=== PATIENT | female | born 1975 | race Caucasian/White ===

== ENCOUNTER 2019-09-25 11:25 | Outpatient (CLI) | payer OTHER, SELFPAY ==
[2019-09-25 11:40] LABS: Basophils Absolute Auto 0.07 K/mm3 (0.00-0.10); Eosinophils Absolute Auto 0.22 K/mm3 (0.02-0.50); Eosinophils Percent Auto 3.1 % (1.0-6.0); Hematocrit 40.3 % (35.0-49.0); Hemoglobin 13.6 g/dL (12.0-15.0); Immature Granulocyte Absolute 0.02 K/mm3 (0.00-0.00); Immature Granulocyte Percent A 0.3 % (0.0-0.0); Lymphocytes Absolute Auto 1.75 K/mm3 (1.10-4.50); Lymphocytes Percent Auto 24.7 % (18.0-42.0); Mean Corpuscular HGB Conc 33.7 g/dL (32.0-36.0); Mean Corpuscular Hemoglobin 32.5 pg (27.0-31.0); Mean Corpuscular Volume 96.4 fL (78.0-102.0); Mean Platelet Volume 8.8 fl (9.2-11.8); Monocytes Absolute Auto 0.45 K/mm3 (0.10-0.90); Monocytes Percent Auto 6.3 % (2.0-11.0); Neutrophils Absolute Auto 4.6 K/mm3 (1.7-7.2); Neutrophils Percent Auto 64.6 % (50.0-70.0); Platelet Count Result 230 K/mm3 (150-420); Red Blood Count 4.18 M/mm3 (4.20-5.40); Red Cell Distribution Width 11.7 % (11.6-14.4); White Blood Count 7.1 K/mm3 (4.8-10.8)
--- NOTE | 2019-09-25 11:47 | ECG_ITS ---
Measurements Intervals [place] Rate: 65 P: 57 MS: 163 QRS: 48 QRSD: 97 T: 50 QT: 427 QTc: 446 Interpretive Statements SINUS RHYTHM INCOMPLETE RIGHT BUNDLE BRANCH BLOCK BORDERLINE ECG Electronically Signed On 09-25-2019 17:25:02 ENDOSCOPY RN by Gabriel Ramos D.O.
[2019-09-25 12:04] LABS: Alanine Aminotransferase 30 U/L (14-59); Albumin Level 4.5 g/dL (3.4-5.0); Alkaline Phosphatase 43 U/L (46-116); Anion Gap 14.8 mmol/L (7-16); Aspartate Amino Transferase 17 U/L (15-37); Bilirubin,Total 0.4 mg/dL (0.00-1.00); Blood Urea Nitrogen 10 mg/dL (7-18); Calcium 9.2 mg/dL (8.5-10.1); Carbon Dioxide 27 mmol/L (21-32); Chloride 101 mmol/L (98-108); Cholesterol 269 mg/dL (0-200); Estimated Glomerular Filt Rate > 60; Glucose 91 mg/dL (70-99); HDL Direct 54 mg/dL (40-60); LDL Cholesterol Calculated 165 mg/dL (<130); Osmolality Calculated 287 mOsm/kg (285-295); Potassium 3.8 mmol/L (3.5-5.1); Sodium 139 mmol/L (136-145); Thyroid Stimulating Hormone 4.81 uIU/mL (0.36-3.74); Total Protein 8.1 g/dL (6.4-8.2); Triglycerides 250 mg/dL (0-150)
== END 2019-09-25 11:26 | disposition home or self-care (01) ==
PROVIDERS: PCP Nurse Practitioner Family; Visit Provider Nurse Practitioner Family
DX: R23.2 Flushing (principal); I10 Essential (primary) hypertension; I16.0 Hypertensive urgency; Z01.818 Encounter for other preprocedural examination
CPT/HCPCS: 36415; 80053; 80061; 83001; 84146; 84443; 85025; 93005

== ENCOUNTER 2019-09-25 15:06 | Emergency (ER) | payer OTHER, SELFPAY ==
[2019-09-25 15:16] VITALS: BP 164/90; PULSE 85; RESP 19; TEMP 37.1; O2SAT 99
--- NOTE | 2019-09-25 15:16 | ED.GENADULT ---
HPI - General Adult General Chief complaint: Neuro Symptoms/Deficit Stated complaint: . Time Seen by Provider: 09/25/19 15:16 Source: patient and RN notes reviewed Mode of arrival: ambulatory Limitations: no limitations History of Present Illness HPI narrative: Patient has a history of hypertension. She has been having elevated blood pressures, flushing and some transient dizziness. She had a near syncopal episode last month. Episodes have been on and off for the last month worse in the last week. Today she was working and coworkers were checking her blood pressure. She was sent down to the clinic where she got an extra dose of captopril 6.25 mg and hydrochlorothiazide 12.5 mg. her blood pressure remained elevated to 160/110 while she was working. She is sent here to the ER for further treatment. complaint: Elevated blood pressure Onset (ago): month(s) (1) Severity: moderate Relieving factors: none Exacerbating factors: none Associated symptoms: denies other symptoms Related Data Home Medications Medication Instructions Recorded Confirmed cetirizine 10 mg capsule 10 mg PO DAILY 09/25/19 citalopram 20 mg tablet 20 mg PO DAILY 09/25/19 lisinopril 10 1 tablet PO DAILY 09/25/19 mg-hydrochlorothiazide 12.5 mg tablet vit C,E,zinc,copper-xovyq4g 250 1 cap PO DAILY 09/25/19 mg-lutein 5 mg-zeaxanthin 1 mg capsule Allergies Allergy/AdvReac Type Severity Reaction Status Date / Time azithromycin Allergy Mild other Verified 09/25/19 10:22 Review of Systems Constitutional: Constitutional: Reports no additional constitutional complaints Eyes: Eyes: Reports no additional eye complaints ENT: Reports system reviewed and no additional complaints, except as documented Cardiovascular: Cardiovascular: Reports no additional cardiovascular complaints Respiratory: Respiratory: Reports no additional respiratory complaints Gastrointestinal: Gastrointestinal: Reports no additional gastrointestinal complaints Musculoskeletal: Musculoskeletal: Reports no additional musculoskeletal complaints Neurologic: Denies confusion, Reports dizziness, Reports headache(s), Denies focal weakness and Denies numbness Psychiatric: Psychiatric: Reports no additional psychiatric complaints Endocrine: Comments: [place] PMFSH Past Medical History Medical History delivery delivered Hyperlipidemia Hypertension Nicotine dependence in remission Polycystic kidney disease Surgical History Surgical History History of hysterectomy History of tonsillectomy Family History Family History Father Polycystic kidney disease Mother Breast cancer Social History Social History Years smoked: 8 Smoking status: Former smoker Tobacco type: cigarettes Alcohol intake: current Substance use: current Substance use type: marijuana Additional occupation/education comments: RN Gender identity (if verbalized by the patient): Female Spiritual care concerns: No Exam Narrative: Exam Narrative: Female nurse in room during examination. Const: General: healthy appearing, no acute distress and alert Nutritional Appearance: well nourished Orientation/consciousness: patient oriented x3 HENMT: Head: normal to inspection General nose exam: Normal external nose present Face and sinus: normal facial exam Mouth: Yes lip normal and Yes moist mucous membranes Eyes: Conjunctivae: conjunctivae normal Pupils: Equal, round and reactive pupils present EOM: EOMs intact bilaterally Neck: Neck: normal visual inspection Resp: Effort & Inspection: normal respiratory effort Auscultation: clear to auscultation bilaterally Cardio: Rate: regular rate Rhythm: regular rhythm Heart sounds: no murmurs GI: GI Palp:
[2019-09-25] MEDS: CLONIDINE HCL 0.2 MG TABLET PO (15:25)
[2019-09-25 15:44] VITALS: BP 141/85
[2019-09-25 15:59] VITALS: BP 149/83
== END 2019-09-25 16:07 | disposition home or self-care (01) ==
PROVIDERS: Emergency Provider Emergency Medicine
DX: I10 Essential (primary) hypertension (principal); Z87.891 Personal history of nicotine dependence
CPT/HCPCS: 99282; 99283; A9270

== ENCOUNTER 2019-09-28 10:31 | Outpatient (CLI) | payer OTHER, SELFPAY ==
--- NOTE | 2019-09-28 10:59 | ECG_ITS ---
Measurements Intervals [place] Rate: 71 P: 19 WA: 150 QRS: 74 QRSD: 98 T: 41 QT: 401 QTc: 438 Interpretive Statements SINUS RHYTHM INCOMPLETE RIGHT BUNDLE BRANCH BLOCK BORDERLINE ECG Electronically Signed On 09-28-2019 11:28:38 SEARCH ENGINE OPTIMIZATION MANAGER by Gabriel Ramos D.O.
[2019-09-28 11:00] LABS: Appearance Urine Clear (Clear); Bilirubin Urine Negative (Negative); Color Urine Yellow (Yellow); Glucose Urine UA Negative (Negative); Ketones Urine Negative (Negative); Leukocyte Esterase Ur Negative (Negative); Nitrate Urine Negative (Negative); Protein Urine 1+ (Negative); Specific Grav Ur 1.015 (1.010-1.020); Urobilinogen Urine 0.2 mg/dL (0.2-1.0); pH Urine 7.5 (5.0-8.0)
[2019-09-28 11:09] LABS: Add Urine Microscopic? YES; Blood Urine Trace-Intact (Negative); RBC Urine 0-2 /hpf (0-2); Squamous Epithelial Cell Urine Moderate /hpf (Few); WBC Urine 0-3 /hpf (0-3)
[2019-09-28 11:10] LABS: Bacteria Urine Trace /hpf
[2019-09-28 11:23] LABS: BNP < 5.0 pg/mL (0-100)
[2019-09-28 11:31] LABS: Anion Gap 17.1 mmol/L (7-16); Blood Urea Nitrogen 11 mg/dL (7-18); Calcium 9.9 mg/dL (8.5-10.1); Carbon Dioxide 27 mmol/L (21-32); Chloride 99 mmol/L (98-108); Estimated Glomerular Filt Rate > 60; Glucose 93 mg/dL (70-99); Osmolality Calculated 287 mOsm/kg (285-295); Potassium 4.1 mmol/L (3.5-5.1); Sodium 139 mmol/L (136-145)
== END 2019-09-28 10:32 | disposition home or self-care (01) ==
PROVIDERS: PCP Family Medicine; Visit Provider Family Medicine
DX: R53.83 Other fatigue (principal); R42 Dizziness and giddiness; R23.2 Flushing
CPT/HCPCS: 36415; 80048; 81001; 83880; 93005

== ENCOUNTER 2019-10-05 08:15 | Outpatient (CLI) | payer OTHER, SELFPAY ==
--- NOTE | 2019-10-05 08:17 | EST_ITS ---
Patient Info Name: Maddy Doss Age: 44 years : 1975 Gender: Female Ht: 68 in Wt: 240 lbs BSA: 2.33 m2 HR: 92 bpm BP: 118 / 78 mmHg Heart Rhythm: Sinus Rhythm Technical Quality: Excellent Exam Date: 10/05/2019 8:34 AM Exam Location: [facility] Patient Status: Outpatient Admit Date: 10/05/2019 Staff Ordering Physician: Brandon Edmonds DO Attending Provider: Brandon Edmonds DO Referring Physician: Brandon Edmonds; Exercise Technologist: Jesenia Valverde CRT Exercise Physician: Nadine Oshea CEP Exam Type: CA stress test treadmill Study Info An exercise stress test was performed. Summary 1. 1. Negative Guillermo exercise stress test for ischemic ST changes by ECG criteria. 2. 2. Good functional capacity, achieving 10 METs of workload. 3. 3. Hypertensive response to exercise. 4. 4. Appropriate HR response to exercise. 5. 5. Appropriate HR recovery at 1 minute post exercise. 6. 6. No imaging with stress testing. Protocol: Guillermo Stress ECG Details Stage: REST Duration (min): 1 min : 46 sec Speed (mph): 0.0 Grade (%): 0 HR (bpm): 92 SBP (mmHg): 118 DBP (mmHg): 78 METS: --- Stage: REST Duration (min): 13 min : 53 sec Speed (mph): 0.0 Grade (%): 0 HR (bpm): 110 SBP (mmHg): 118 DBP (mmHg): 78 METS: --- Stage: STAGE 1 Duration (min): 1 min : 0 sec Speed (mph): 1.7 Grade (%): 10 HR (bpm): 119 SBP (mmHg): 118 DBP (mmHg): 78 METS: --- Stage: STAGE 1 Duration (min): 2 min : 0 sec Speed (mph): 1.7 Grade (%): 10 HR (bpm): 122 SBP (mmHg): 118 DBP (mmHg): 78 METS: --- Stage: STAGE 1 Duration (min): 3 min : 0 sec Speed (mph): 1.7 Grade (%): 10 HR (bpm): 127 SBP (mmHg): 160 DBP (mmHg): 54 METS: --- Stage: STAGE 2 Duration (min): 1 min : 0 sec Speed (mph): 2.5 Grade (%): 12 HR (bpm): 139 SBP (mmHg): 160 DBP (mmHg): 54 METS: --- Stage: STAGE 2 Duration (min): 2 min : 0 sec Speed (mph): 2.5 Grade (%): 12 HR (bpm): 147 SBP (mmHg): 160 DBP (mmHg): 54 METS: --- Stage: STAGE 2 Duration (min): 3 min : 0 sec Speed (mph): 2.5 Grade (%): 12 HR (bpm): 148 SBP (mmHg): 158 DBP (mmHg): 54 METS: --- Stage: STAGE 3 Duration (min): 1 min : 0 sec Speed (mph): 3.4 Grade (%): 14 HR (bpm): 161 SBP (mmHg): 158 DBP (mmHg): 54 METS: --- Stage: STAGE 3 Duration (min): 2 min : 0 sec Speed (mph): 3.4 Grade (%): 14 HR (bpm): 167 SBP (mmHg): 158 DBP (mmHg): 54 METS: --- Stage: STAGE 3 Duration (min): 3 min : 0 sec Speed (mph): 3.4 Grade (%): 14 HR (bpm): 172 SBP (mmHg): 189 DBP (mmHg): 104 METS: --- Stage: STAGE 4 Duration (min): 0 min : 29 sec Speed (mph): 4.2 Grade (%): 16 HR (bpm): 176 SBP (mmHg): 189 DBP (mmHg): 104 METS: ---
== END 2019-10-05 08:16 | disposition home or self-care (01) ==
LOC: CHSCARD 08:17
PROVIDERS: PCP Family Medicine; Visit Provider Family Medicine
DX: I16.0 Hypertensive urgency (principal)
CPT/HCPCS: 93017

== ENCOUNTER 2020-03-22 12:03 | Outpatient (CLI) | payer OTHER, SELFPAY ==
--- NOTE | ~2020-03-22 | CT_ITS ---
EXAMINATION: CT abdomen pelvis w con EXAM DATE: 03/22/2020 13:15 INDICATION: Generalized abdominal pain, burning sensation. Symptoms 3 days. TECHNIQUE: Spiral CT of the abdomen and pelvis was performed following intravenous injection of 100 m L Omnipaque 350. Axial, coronal and sagittal images were reviewed. The dose-length product (DLP) fo r this examination was 1163.59 mGy-cm. The exposure was tailored according to patient size (auto mA exposure control), and iterative reconstruction (ASIR) was used as additional dose reduction techniqu e. There is no prior study for comparison. FINDINGS: Innumerable small renal cysts and numerous liver cysts. Probably autosomal dominant polycys tic kidney disease but the kidneys are normal in size overall which is atypical for that diagnosis. L argest liver cyst is about 3 cm, and largest kidney cyst is exophytic off the left kidney superior po le measuring over 9 cm. The liver, spleen, adrenal glands and pancreas are otherwise unremarkable. Gallbladder is unremarkab le. No biliary obstruction. Portal and splenic veins are patent. Kidneys enhance symmetrically. T here is no hydronephrosis. The uterus is not identified and has likely been surgically resected. T he bladder is unremarkable. There is no retroperitoneal or pelvic lymphadenopathy. Small umbilical fat-containing hernia. The appendix is normal. The stomach and small bowel are unremarkable. There is expected amount of c olonic stool. No free intraperitoneal gas. The heart is normal in size. There are no pericardial or pleural effusions. The lung bases are unremarkable. The bones are unremarkable. IMPRESSION: 1. Polycystic kidneys, liver. Probably autosomal dominant polycystic kidney disease. 2. No acute intra-abdominal findings. Reviewed, dictated and finalized at location A. IMPRESSION: 1. Polycystic kidneys, liver. Probably autosomal dominant polycystic kidney di sease. 2. No acute intra-abdominal findings.
[2020-03-22 12:54] LABS: Blood Urea Nitrogen 11 mg/dL (7-18); Calcium 9.1 mg/dL (8.5-10.1); Carbon Dioxide 29 mmol/L (21-32); Chloride 101 mmol/L (98-108); Estimated Glomerular Filt Rate 57; Glucose 109 mg/dL (70-99); Osmolality Calculated 282 mOsm/kg (285-295); Sodium 136 mmol/L (136-145)
[2020-03-22 13:13] LABS: Basophils Absolute Auto 0.09 K/mm3 (0.00-0.10); Basophils Percent Auto 1.1 % (0.0-1.0); Eosinophils Absolute Auto 0.42 K/mm3 (0.02-0.50); Eosinophils Percent Auto 5.2 % (1.0-6.0); Hematocrit 41.8 % (35.0-49.0); Hemoglobin 14.4 g/dL (12.0-15.0); Immature Granulocyte Absolute 0.03 K/mm3 (0.00-0.00); Immature Granulocyte Percent A 0.4 % (0.0-0.0); Lymphocytes Absolute Auto 1.86 K/mm3 (1.10-4.50); Lymphocytes Percent Auto 22.9 % (18.0-42.0); Mean Corpuscular HGB Conc 34.4 g/dL (32.0-36.0); Mean Corpuscular Hemoglobin 33.2 pg (27.0-31.0); Mean Corpuscular Volume 96.3 fL (78.0-102.0); Mean Platelet Volume 9.1 fl (9.2-11.8); Monocytes Absolute Auto 0.49 K/mm3 (0.10-0.90); Neutrophils Absolute Auto 5.2 K/mm3 (1.7-7.2); Neutrophils Percent Auto 64.4 % (50.0-70.0); Platelet Count Result 272 K/mm3 (150-420); Red Blood Count 4.34 M/mm3 (4.20-5.40); Red Cell Distribution Width 11.9 % (11.6-14.4); White Blood Count 8.1 K/mm3 (4.8-10.8)
[2020-03-22 13:39] LABS: Thyroid Stimulating Hormone Reflex 2.49 u/IU/mL (0.36-3.74)
== END 2020-03-22 12:04 | disposition home or self-care (01) ==
PROVIDERS: Family Medicine; PCP Nurse Practitioner Family; Visit Provider Nurse Practitioner Family
DX: R10.84 Generalized abdominal pain (principal); E03.9 Hypothyroidism, unspecified; Z87.448 Personal history of other diseases of urinary system
CPT/HCPCS: 36415; 74177; 80048; 84443; 85025; 85055; Q9965

== ENCOUNTER 2020-04-05 07:43 | Outpatient (CLI) | payer OTHER, SELFPAY ==
[2020-04-05 07:55] LABS: Basophils Absolute Auto 0.08 K/mm3 (0.00-0.10); Basophils Percent Auto 1.2 % (0.0-1.0); Eosinophils Absolute Auto 0.39 K/mm3 (0.02-0.50); Hematocrit 40.1 % (35.0-49.0); Hemoglobin 13.8 g/dL (12.0-15.0); Immature Granulocyte Absolute 0.03 K/mm3 (0.00-0.00); Immature Granulocyte Percent A 0.5 % (0.0-0.0); Lymphocytes Absolute Auto 1.38 K/mm3 (1.10-4.50); Lymphocytes Percent Auto 21.2 % (18.0-42.0); Mean Corpuscular HGB Conc 34.4 g/dL (32.0-36.0); Mean Corpuscular Hemoglobin 33.2 pg (27.0-31.0); Mean Corpuscular Volume 96.4 fL (78.0-102.0); Mean Platelet Volume 8.6 fl (9.2-11.8); Monocytes Percent Auto 4.6 % (2.0-11.0); Neutrophils Absolute Auto 4.3 K/mm3 (1.7-7.2); Neutrophils Percent Auto 66.5 % (50.0-70.0); Platelet Count Result 220 K/mm3 (150-420); Red Blood Count 4.16 M/mm3 (4.20-5.40); Red Cell Distribution Width 11.9 % (11.6-14.4); White Blood Count 6.5 K/mm3 (4.8-10.8)
[2020-04-05 07:56] LABS: Appearance Urine Clear (Clear); Bilirubin Urine Negative (Negative); Color Urine Yellow (Yellow); Glucose Urine UA Negative (Negative); Ketones Urine Negative (Negative); Leukocyte Esterase Ur Negative LEU/UL (Negative); Nitrate Urine Negative (Negative); Protein Urine 1+ (Negative); Urobilinogen Urine 0.2 mg/dL (0.2-1.0)
[2020-04-05 08:01] LABS: Add Urine Microscopic? YES; Blood Urine Trace-Intact (Negative); RBC Urine 0-2 /hpf (0-2); WBC Urine 0-3 /hpf (0-3)
[2020-04-05 08:02] LABS: Bacteria Urine 1+ /hpf; Squamous Epithelial Cell Urine Few /hpf (Few)
[2020-04-05 08:19] LABS: Creatinine Urine 100.98 mg/dL (40-278); Total Protein Urine Random 42.2 mg/dL (0.0-11.9)
[2020-04-05 08:31] LABS: Anion Gap 7 mmol/L (8-16); Blood Urea Nitrogen 14 mg/dL (7-18); Calcium 9.1 mg/dL (8.5-10.1); Carbon Dioxide 29 mmol/L (21-32); Chloride 102 mmol/L (98-108); Estimated Glomerular Filt Rate > 60; Glucose 115 mg/dL (70-99); Osmolality Calculated 287 mOsm/kg (285-295); Phosphorus 2.8 mg/dL (2.6-4.7); Potassium 3.8 mmol/L (3.5-5.1); Sodium 138 mmol/L (136-145)
== END 2020-04-05 07:44 | disposition home or self-care (01) ==
LOC: CHSLAB 07:44
PROVIDERS: PCP Family Medicine; Visit Provider Internal Medicine Nephrology
DX: Q61.2 Polycystic kidney, adult type (principal)
CPT/HCPCS: 36415; 80069; 81001; 82570; 84156; 85025

== ENCOUNTER 2020-04-09 07:28 | Outpatient (CLI) | payer OTHER, SELFPAY ==
--- NOTE | ~2020-04-09 | MR_ITS ---
EXAMINATION: MRA brain wo con DATE: 04/09/2020 08:41 INDICATION: Polycystic kidney disease. TECHNIQUE: Magnetic resonance angiography (MRA) of the brain was performed without intravenous contra st with T1-weighted SPGR by the 3D [id number] technique. Maximum intensity projection 3D-reconstr uctions were obtained. Axial T1-weighted FSE and axial DWI were performed. COMPARISON: None. FINDINGS: Right vertebral artery is dominant. There is no significant stenosis of basilar artery or the posteri or cerebral arteries. Right posterior communicating artery is normal. A left posterior communicating artery is not identified. There is no significant stenosis of the intracranial internal carotid arter ies or anterior or middle cerebral arteries. Anterior communicating artery is normal. There is no ane urysm. IMPRESSION: 1. Normal MRA. No aneurysm. Reviewed, dictated and finalized at location A. IMPRESSION: 1. Normal MRA. No aneurysm.
== END 2020-04-09 07:29 | disposition home or self-care (01) ==
LOC: CHSIMG 07:29
PROVIDERS: PCP Family Medicine; Visit Provider Internal Medicine Nephrology
DX: Q61.2 Polycystic kidney, adult type (principal)
CPT/HCPCS: 70544

== ENCOUNTER 2020-04-20 12:43 | Emergency (ER) | payer OTHER, SELFPAY ==
[2020-04-20 13:06] VITALS: BP 147/80; PULSE 100; RESP 18; TEMP 36.7; O2SAT 95
[2020-04-20 13:38] LABS: Basophils Absolute Auto 0.1 K/mm3 (0.0-0.1); Basophils Percent Auto 0.9 % (0.2-1.2); Eosinophils Absolute Auto 0.5 K/mm3 (0-0.3); Eosinophils Percent Auto 5.9 % (0-4.4); Hematocrit 42.8 % (37.0-47.0); Hemoglobin 14.8 g/dL (12.0-15.0); Immature Granulocyte Absolute 0.04 K/mm3 (0.00-0.031); Immature Granulocyte Percent A 0.5 % (0-0.5); Lymphocytes Percent Auto 19.6 % (18.3-44.2); Mean Corpuscular HGB Conc 34.6 g/dl (32-36); Mean Corpuscular Hemoglobin 32.6 pg (26-34); Mean Corpuscular Volume 94.3 fl (80-100); Mean Platelet Volume 9.2 fl (7.4-10.4); Monocytes Absolute Auto 0.5 K/mm3 (0.1-0.6); Monocytes Percent Auto 5.7 % (2.6-8.5); Neutrophils Absolute Auto 5.8 K/mm3 (1.3-6.7); Neutrophils Percent Auto 67.4 % (45.5-73.1); Platelet Count Result 263 k/mm3 (150-375); Red Blood Count 4.54 M/mm3 (4.2-5.4); Red Cell Distribution Width 12.1 % (11.5-14.5); White Blood Count 8.7 K/mm3 (4.5-10.0)
[2020-04-20 13:44] LABS: Add Urine Microscopic? NO; Appearance Urine Clear (Clear); Bilirubin Urine Negative (Negative); Blood Urine Negative (Negative); Color Urine Straw (Yellow); Glucose Urine UA Negative (Negative); Ketones Urine Negative (Negative); Leukocyte Esterase Ur Negative LEU/UL (Negative); Nitrate Urine Negative (Negative); Protein Urine Negative (Negative); RBC Urine 0-2 /hpf (0-2); Specific Grav Ur 1.009 (1.001-1.035); Squamous Epithelial Cell Urine Many /hpf (Few); Urobilinogen Urine Negative mg/dL (<2.0)
[2020-04-20 13:54] LABS: Alanine Aminotransferase 29 U/L (4-35); Albumin Level 4.8 g/dL (3.5-5.1); Alkaline Phosphatase 51 U/L (38-126); Anion Gap 11 mmol/L (8-16); Aspartate Amino Transferase 32 U/L (14-36); Bilirubin,Total 0.3 mg/dL (0.2-1.3); Blood Urea Nitrogen 11 mg/dL (7-17); Calcium 9.6 mg/dL (8.4-10.2); Carbon Dioxide 22 mmol/L (22-30); Chloride 102 mmol/L (98-107); Estimated CRCL calculation 97 ml/min; Estimated Glomerular Filt Rate > 60; Glucose 97 mg/dL (65-105); Lipase 116 U/L (23-300); Potassium 3.9 mmol/L (3.4-5.0); Sodium 135 mmol/L (137-145)
--- NOTE | 2020-04-20 14:42 | ED.ABDPAIN ---
HPI - Abdominal Pain General Chief Complaint: Abdominal Pain <RODY Linares Last Filed: 04/20/20 17:23> Stated Complaint: ABD Pain <RODY Linares Last Filed: 04/20/20 17:23> Time Seen by Provider: 04/20/20 12:58 <RODY Linares Last Filed: 04/20/20 17:23> Source: patient, family and old records reviewed <RODY Linares Last Filed: 04/20/20 17:23> Mode of arrival: ambulatory <RODY Linares Last Filed: 04/20/20 17:23> Limitations: no limitations <RODY Linares Last Filed: 04/20/20 17:23> History of Present Illness HPI narrative: Patient is a 44-year-old female who presents with 2 months duration of generalized abdominal pain noting history of polycystic kidney disease noting that she had recent CAT scan which revealed large cysts of the kidneys patient also notes liver cyst was supposed to see urology today to discuss the findings. Patient was also followed by nephrology and primary care for this and has been taking home narcotics with no improvement. Patient missed her urology appointment today presents to emergency department with moderate to severe aching of the upper abdomen. Patient denies fever vomiting diarrhea <RODY Linares Last Filed: 04/20/20 17:23> Related Data Home Medications: Home Medications Medication Instructions Recorded Confirmed cetirizine 10 mg capsule 10 mg PO DAILY 09/25/19 09/28/19 citalopram 20 mg tablet 20 mg PO DAILY 09/25/19 09/28/19 vit C,E,zinc,copper-qesyy7v 250 1 cap PO DAILY 09/25/19 09/28/19 mg-lutein 5 mg-zeaxanthin 1 mg capsule <RODY Linares Last Filed: 04/20/20 17:23> Allergies/Adverse Reactions: Allergies Allergy/AdvReac Type Severity Reaction Status Date / Time azithromycin Allergy Mild other Verified 04/20/20 13:10 <RODY Linares Last Filed: 04/20/20 17:23> Review of Systems Review of Systems: All systems reviewed & are unremarkable except as noted in HPI and below <RODY Linares Filed: 04/20/20 17:23> [facility] Past Medical History Medical History: Medical History delivery delivered Hyperlipidemia Hypertension Hypothyroidism Lightheadedness Nicotine dependence in remission Polycystic kidney disease <Matthew Marquez PA-C - Last Filed: 04/20/20 17:23> Surgical History Surgical History: Surgical History History of hysterectomy History of tonsillectomy <Matthew Marquze PA-C - Last Filed: 04/20/20 17:23> Social History Social History: Social History Years smoked: 8 Smoking status: Former smoker Tobacco type: cigarettes Alcohol intake: current Substance use: current Substance use type: marijuana Additional occupation/education comments: RN Gender identity (if verbalized by the patient): Female Spiritual care concerns: No <Matthew Marquez PA-C - Last Filed: 04/20/20 17:23> Exam Narrative: Exam Narrative: GENERAL: Well-appearing, well-nourished, and in no acute distress. HEAD: Normocephalic, atraumatic. EYES: PERRLA and EOMI. ENT: Nares clear, no rhinorrhea or epistaxis. Mucous membranes moist. CHEST: Clear to auscultation. No respiratory distress. No wheezes rales or rhonchi HEART: Regular rate and rhythm. No murmur heard. Normal peripheral pulses. ABDOMEN: Soft, tenderness of the abdomen that is generalized no rebound or guarding, nondistended EXTREMITIES: Normal range of motion. No edema. SKIN: Warm, dry, no rash. NEURO: No focal deficits. Alert and oriented x3. PSYCH: Normal mood and affect. <Matthew Marquez PA-C - Last Filed: 04/20/20 17:23> Course Course Emergency Course: Patient in the room at this time aware of case findings treatment plan diagnosi
[2020-04-20 14:46] VITALS: BP 117/57; PULSE 62; RESP 18; O2SAT 100
[2020-04-20] MEDS: MORPHINE SULFATE 4 MG/ML INJ IV PUSH (14:48)
[2020-04-20] MEDS: FAMOTIDINE 20 MG/2 ML VIAL IV PUSH (14:48)
[2020-04-20] MEDS: SODIUM CHLORIDE 0.9% IV 1,000 ML 999 ML IV CONT (14:49)
== END 2020-04-20 17:54 | disposition home or self-care (01) ==
PROVIDERS: Emergency Medicine Emergency Medical Services; Emergency Provider General Practice; PCP Family Medicine
DX: R10.84 Generalized abdominal pain (principal); Q61.3 Polycystic kidney, unspecified; Z87.891 Personal history of nicotine dependence; E78.5 Hyperlipidemia, unspecified; I10 Essential (primary) hypertension; E03.9 Hypothyroidism, unspecified
CPT/HCPCS: 36415; 80053; 81003; 83690; 85025; 96365; 96375; 99284; J0131; J2270; J7030

== ENCOUNTER 2020-05-19 13:41 | Outpatient (CLI) | payer OTHER, SELFPAY ==
[2020-05-19 13:57] LABS: Total Protein Urine Random 10.1 mg/dL (0.0-11.9)
[2020-05-19 14:43] LABS: Albumin Level 4.1 g/dL (3.4-5.0); Anion Gap 7 mmol/L (8-16); Blood Urea Nitrogen 10 mg/dL (7-18); Calcium 8.7 mg/dL (8.5-10.1); Carbon Dioxide 27 mmol/L (21-32); Chloride 103 mmol/L (98-108); Estimated Glomerular Filt Rate > 60; Glucose 96 mg/dL (70-99); Osmolality Calculated 283 mOsm/kg (285-295); Phosphorus 3.3 mg/dL (2.6-4.7); Potassium 3.7 mmol/L (3.5-5.1); Sodium 137 mmol/L (136-145)
== END 2020-05-19 13:42 | disposition home or self-care (01) ==
LOC: CHSLAB 13:44
PROVIDERS: PCP Family Medicine; Visit Provider Internal Medicine Nephrology
DX: N18.2 Chronic kidney disease, stage 2 (mild) (principal); Q61.2 Polycystic kidney, adult type
CPT/HCPCS: 36415; 80069; 82570; 84156

== ENCOUNTER 2020-10-04 12:22 | Emergency (ER) | payer OTHER, SELFPAY ==
[2020-10-04] VITALS (8 sets, daily range): BP systolic 111–130; BP diastolic 62–74; PULSE 62–75; RESP 20; TEMP 36.6; O2SAT 98–100
--- NOTE | ~2020-10-04 | CT_ITS ---
EXAMINATION: CT brain wo con INDICATION: Transient alteration of awareness COMPARISON: MRI, 04/09/2020 TECHNIQUE: Standard unenhanced head CT. The dose-length product (DLP) was 756.67 mGy-cm. The mA was a djusted according to patient size. Iterative reconstruction technique was employed. FINDINGS: There is no intracranial hemorrhage, acute infarction, or abnormal mass lesion. The ventric les are normal. There is no abnormal mass effect or midline shift. The ferrera-white matter differentiat ion is normal. The basal cisterns are patent. The orbits are normal. The paranasal sinuses, mastoids and calvarium are normal. IMPRESSION: 1. No acute intracranial abnormality. Reviewed, dictated and finalized at location A. STRIAL MACHINERY MECHANIC
--- NOTE | ~2020-10-04 | XR_ITS ---
EXAMINATION: XR chest 1V portable INDICATION: Transient alteration of awareness TECHNIQUE: Portable AP chest at 1305 hours COMPARISON: None available FINDINGS: The lungs are free of acute opacities. There is no pleural effusion or pneumothorax. The ca rdiomediastinal silhouette is normal IMPRESSION: 1. No acute cardiopulmonary abnormality. Reviewed, dictated and finalized at location A. NT PARTNER
--- NOTE | 2020-10-04 12:26 | ED.SYNCOPE ---
HPI - Syncope General Chief Complaint: Syncope Stated Complaint: ambulance Time Seen by Provider: 10/04/20 12:26 Source: patient Mode of arrival: EMS Limitations: no limitations History of Present Illness HPI narrative: 45-year-old woman history of PCKD and hypothyroidism comes in today by EMS for syncopal episodes that happened while she was eating lunch today. When EMS found her she was mildly confused but alert. No seizure activity was noted by witnesses. Patient states that she lost consciousness at least 1 of the 2 times that she passed out. She denies chest pain and shortness of breath but complains that she still has a feeling like she is on a roller coaster ride and denies vertigo, shortness of breath, nausea, sweating and has had no recent illness other than being treated for shingles. She denies any recent illness, sore throat, cough or cold symptoms and fever, Complaining only of allergies . she had a negative stress test in September 2019 for intermittent nausea and feeling off balance. MD complaint: loss of consciousness, felt faint and collapsed Onset (ago): minute(s) (20) -: second(s) Prodromal symptoms: other (sensation of movement) Witnessed: Yes - by Bystander Context: at rest Injuries sustained associated with event: none Current symptoms: other (Sensation of movement) Treatments prior to arrival: none Related Data Home Medications Medication Instructions Recorded Confirmed cetirizine 10 mg capsule 10 mg PO DAILY 09/25/19 10/04/20 vit C,E,zinc,copper-rpxqx2a 250 1 cap PO DAILY 09/25/19 10/04/20 mg-lutein 5 mg-zeaxanthin 1 mg capsule citalopram [Celexa] See Rx Instructions .ROUTE .COMPLEX 10/04/20 10/04/20 Allergies Allergy/AdvReac Type Severity Reaction Status Date / Time azithromycin Allergy Mild other Verified 10/04/20 13:22 Review of Systems Constitutional: Constitutional: Denies chills, Denies fever(s) and Denies weakness Eyes: Eyes: Denies change in vision and Denies photophobia ENT: Reports nasal congestion and Denies sore throat Cardiovascular: Cardiovascular: Denies chest pain and Denies radiating jaw, neck or arm pain Respiratory: Respiratory: Denies cough and Denies dyspnea Gastrointestinal: Gastrointestinal: Denies abdominal pain, Denies diarrhea, Denies nausea and Denies vomiting Genitourinary: Genitourinary: Denies nocturia and Denies dysuria Musculoskeletal: Musculoskeletal: Denies back pain, Denies arthralgias and Denies joint swelling Integumentary/Breasts: Skin/Breast: Denies pruritus, Denies erythema and Denies rash Neurologic: Denies vertigo, Denies dizziness and Reports syncope Allergic/Immunologic: Allergic/Immunologic: Denies lip swelling and Denies throat swelling [facility] Past Medical History Medical History (Updated 10/05/20 @ 00:00 by Maine Daedwin) delivery delivered Hyperlipidemia Hypertension Hypothyroidism Lightheadedness Nicotine dependence in remission Polycystic kidney disease Surgical History Surgical History History of hysterectomy History of tonsillectomy Family History Family History Father Polycystic kidney disease Mother Breast cancer Social History Social History Years smoked: 8 Smoking status: Former smoker Tobacco type: cigarettes Alcohol intake: current Substance use: current Substance use type: marijuana Additional occupation/education comments: RN Gender identity (if verbalized by the patient): Female Spiritual care concerns: No Exam Const: General: no acute distress, alert and ill appearing acutely Orientation/consciousness: patient oriented x3 Limitations: no limitations HENMT: Ears: external ears normal, TM's normal bilaterally and EAC's normal General nose exam: Normal nares present Face and sinus: normal fa
--- NOTE | 2020-10-04 12:27 | ECG_ITS ---
Measurements Intervals [place] Rate: 75 P: 68 WA: 152 QRS: 72 QRSD: 98 T: 62 QT: 401 QTc: 450 Interpretive Statements SINUS RHYTHM INCOMPLETE RIGHT BUNDLE BRANCH BLOCK BASELINE ARTIFACT- I, II, III, V6 BORDERLINE ECG Electronically Signed On 10-04-2020 13:00:04 BI REPORT DEVELOPER by Gabriel Ramos D.O.
[2020-10-04] MEDS: SODIUM CHLORIDE 0.9% IV 1,000 ML 999 ML IV CONT (12:43)
[2020-10-04 12:57] LABS: Basophils Absolute Auto 0.11 K/mm3 (0.00-0.10); Basophils Percent Auto 1.4 % (0.0-1.0); Eosinophils Absolute Auto 0.42 K/mm3 (0.02-0.50); Eosinophils Percent Auto 5.3 % (1.0-6.0); Hematocrit 40.2 % (35.0-49.0); Hemoglobin 13.8 g/dL (12.0-15.0); Immature Granulocyte Absolute 0.03 K/mm3 (0.00-0.00); Immature Granulocyte Percent A 0.4 % (0.0-0.0); Lymphocytes Percent Auto 27.5 % (18.0-42.0); Mean Corpuscular HGB Conc 34.3 g/dL (32.0-36.0); Mean Corpuscular Volume 96.2 fL (78.0-102.0); Mean Platelet Volume 8.8 fl (9.2-11.8); Monocytes Absolute Auto 0.44 K/mm3 (0.10-0.90); Monocytes Percent Auto 5.5 % (2.0-11.0); Neutrophils Absolute Auto 4.8 K/mm3 (1.7-7.2); Neutrophils Percent Auto 59.9 % (50.0-70.0); Platelet Count Result 206 K/mm3 (150-420); Red Blood Count 4.18 M/mm3 (4.20-5.40); Red Cell Distribution Width 11.9 % (11.6-14.4)
[2020-10-04 13:06] LABS: D Dimer 0.39 mg/L (0.19-0.50); Partial Thromboplastin Time 20.7 SEC (23.90-30.70); Prothrombin Time 10.2 Seconds (9.50-12.10)
[2020-10-04 13:08] LABS: BNP 7.6 pg/mL (0-100)
[2020-10-04 13:11] LABS: Lactic Acid Reflex 2.5 mmol/L (0.4-2.0)
[2020-10-04 13:15] LABS: Add Urine Microscopic? YES; Appearance Urine Clear (Clear); Bilirubin Urine Negative (Negative); Blood Urine Negative (Negative); Color Urine Yellow (Yellow); Glucose Urine UA Negative (Negative); Ketones Urine Negative (Negative); Leukocyte Esterase Ur Trace LEU/UL (Negative); Nitrate Urine Negative (Negative); Protein Urine Trace (Negative); Urobilinogen Urine 0.2 mg/dL (0.2-1.0); pH Urine 6.5 (5.0-8.0)
[2020-10-04 13:18] LABS: Alanine Aminotransferase 24 U/L (14-59); Albumin Level 4.1 g/dL (3.4-5.0); Alkaline Phosphatase 41 U/L (46-116); Anion Gap 13 mmol/L (8-16); Aspartate Amino Transferase 15 U/L (15-37); Bilirubin,Total 0.3 mg/dL (0.00-1.00); Blood Urea Nitrogen 9 mg/dL (7-18); Calcium 9.4 mg/dL (8.5-10.1); Carbon Dioxide 25 mmol/L (21-32); Chloride 99 mmol/L (98-108); Estimated CRCL calculation 72 ml/min; Estimated Glomerular Filt Rate 52; Glucose 107 mg/dL (70-99); Magnesium 1.8 mg/dL (1.8-2.4); Osmolality Calculated 282 mOsm/kg (285-295); Potassium 3.5 mmol/L (3.5-5.1); Sodium 137 mmol/L (136-145); Total Protein 7.6 g/dL (6.4-8.2)
[2020-10-04 13:19] LABS: Troponin I 96.6 ng/L (0.00-60.4)
[2020-10-04 13:21] LABS: Bacteria Urine 1+ /hpf; RBC Urine 0-2 /hpf (0-2); Squamous Epithelial Cell Urine Many /hpf (Few)
[2020-10-04 13:31] LABS: Amphetamine Screen Urine Negative (Negative); Barbiturate Screen Urine Negative (Negative); Benzodiazepines Screen Urine Negative (Negative); Cannabinoid Screen Urine Positive (Negative); Cocaine Screen Urine Negative (Negative); Methadone Screen Urine Negative (Negative); Opiate Screen Urine Negative (Negative); Phencyclidine Screen Urine Negative (Negative)
[2020-10-04] MEDS: ASPIRIN 81 MG CHEWABLE TABLET 324 MG PO (14:49)
[2020-10-04 15:48] LABS: Reflex Lactic Acid Yes or No Add Lactic
[2020-10-04 16:25] LABS: Lactic Acid 0.3 mmol/L (0.4-2.0)
[2020-10-04 16:26] LABS: Troponin I 89.2 ng/L (0.00-60.4)
== END 2020-10-04 18:11 | disposition short-term general hospital (02) ==
PROVIDERS: Emergency Provider Emergency Medicine; PCP Family Medicine
DX: R55 Syncope and collapse (principal); R79.9 Abnormal finding of blood chemistry, unspecified
CPT/HCPCS: 36415; 70450; 71045; 80053; 80307; 81001; 83605; 83735; 83880; 84484; 85025; 85380; 85610; 85730; 87040; 93005; 96360; 99285; A9270; J7030

== ENCOUNTER 2020-11-15 07:38 | Outpatient (CLI) | payer OTHER, SELFPAY ==
--- NOTE | 2020-11-17 12:23 | WPDHOLTEREM ---
Holter/Event Monitor Holter/Event Monitor Date of procedure: 11/15/20 Procedure Type: 48 hour holter monitor Indications: Syncope Conclusion: 1. 48 hour holter monitor on 11/15/20. 2. Underlying rhythm is sinus rhythm. HR range 52-140 bpm; average 78 bpm. 3. There are 2 premature supraventricular complexes. No supraventricular tachycardia. 4. No premature ventricular complexes. No ventricular tachycardia. 5. No sinoatrial or atrioventricular blocks. No significant pauses greater than 2 seconds. 6. No symptoms available for correlation.
== END 2020-11-15 07:39 | disposition home or self-care (01) ==
PROVIDERS: PCP Family Medicine; Visit Provider Family Medicine
DX: R55 Syncope and collapse (principal)
CPT/HCPCS: 93225; 93226

== ENCOUNTER 2020-11-29 08:35 | Outpatient (CLI) | payer OTHER, SELFPAY ==
--- NOTE | 2020-11-30 08:30 | P.NEURO_ITS ---
Neurology EEG Report General Information Date of Study: 11/29/20 TEST eeg DIAGNOSIS syncope and collapse CONDITION OF RECORDING awake and drowsy EEG NUMBER [id number] CLINICAL HISTORY patient reported she has lost consciousness a couple of times. Gets a little nauseous and face turns pale before losing consciousness EEG DESCRIPTION basic resting occipital frequency consists of moderate amount of fairly well- organized low to medium voltage 8 to 10 hertz per 2nd alpha admixed with low- voltage 15 to 18 hertz per 2nd beta in drowsiness low-voltage beta activity seen diffusely. hyperventilation not done. Photic stimulation produced normal drive. Non paroxysmal nonfocal nonlateralizing IMPRESSION no significant abnormalities noted
== END 2020-11-29 08:36 | disposition home or self-care (01) ==
PROVIDERS: PCP Family Medicine; Visit Provider Family Medicine
DX: R55 Syncope and collapse (principal)
CPT/HCPCS: 95816

== ENCOUNTER 2022-02-08 10:26 | Outpatient (CLI) | payer OTHER, SELFPAY ==
--- NOTE | ~2022-02-08 | XR_ITS ---
XR knee LT 2V 02/08/2022 10:52 INDICATION: Left knee pain PROCEDURE: 3 views left knee COMPARISON: No prior studies for comparison. FINDINGS: Fracture, dislocation or subluxation is not identified. No significant joint effusion. The soft tissues appear within normal limits. No foreign bodies are identified. IMPRESSION: 1: NO ACUTE BONE OR JOINT ABNORMALITY IDENTIFIED. Reviewed, dictated and finalized at location A.
== END 2022-02-08 10:27 | disposition home or self-care (01) ==
LOC: CHSIMG 10:30
PROVIDERS: PCP Family Medicine; Visit Provider Family Medicine
DX: M25.562 Pain in left knee (principal)
CPT/HCPCS: 73560

== ENCOUNTER 2022-02-08 12:53 | Outpatient (RCR) | payer OTHER, SELFPAY ==
--- NOTE | 2022-02-23 13:30 | PTOPEVAL ---
Thank you for referring Maddy Baldwin to [facility].? The patient is scheduled to be seen for therapy? ____x/week for ___ weeks. Please review, sign, date and return this plan of care ALDO. I agree with and certify that the following plan of care is medically necessary. Referring Physician Date Admitting Provider: Attending Provider: Ángela Ta NP Referring Provider: *PT Outpatient Evaluation Start: 02/08/22 13:03 Freq: Status: Active Protocol: Document 02/08/22 13:00 [facility] (Rec: 02/08/22 14:13 [facility] [id number]) Therapy Assessment Status Assessment Status Assessment Status Evaluation Outpatient Past Medical History Neurological History Hx Neurological Disorders No Significant History Cardiovascular History Hx Hypercholesterolemia Yes Hx Hypertension Yes Respiratory History Hx Respiratory Disorders No Significant History Gastrointestinal History Hx Gastrointestinal Disorders No Significant History Genitourinary History Hx Renal Disease Yes: POLYCISYSTIC KIDNEY Musculoskeletal History Hx Musculoskeletal Disorders No Significant History Hematological History Hx Hematological Disorders No Significant History Endocrine History Hx Endocrine Disorders No Significant History HEENT History Hx HEENT Disorders No Significant History Integumentary History Hx Skin Disorders No Significant History Psychosocial History Hx Anxiety Yes Hx Depression Yes Pain History History of Any Previous or Ongoing No Significant History Instance of Pain Anesthesia History Hx Anesthesia Reactions No Significant History Evaluation Information Problem Diagnosis L Knee Pain Onset 02/07/22 Additional Evaluation Detail LEFS = 58% functionally declined Subjective Information Pt reports that as a kid she Query Text:As Reported By Patient/ experienced her knees locking Family up after kneeling for a while. Yesterday, she was getting out of bed with her legs and L knee went out of place. She states that the pain was excruciating and she had to lay on the floor for six hours . She then was walking with a stool, similar to as if it was a walker for her to get to the bathroom. When walking to the bathroom, her knee went back into place and was less painful, but was just sore.
--- NOTE | 2022-03-09 07:40 | PTOPEVAL ---
Thank you for referring Maddy Baldwin to [facility].? The patient is scheduled to be seen for therapy? __2__x/week for 8 visits. Please review, sign, date and return this plan of care ALDO. I agree with and certify that the following plan of care is medically necessary. Referring Physician Date Admitting Provider: Attending Provider: Ángela Ta NP Referring Provider: *PT Outpatient Evaluation Start: 02/08/22 13:03 Freq: Status: Active Protocol: Document 02/08/22 13:00 [facility] (Rec: 02/08/22 14:13 MARIA ELENA [id number]) Therapy Assessment Status Assessment Status Assessment Status Evaluation Outpatient Past Medical History Neurological History Hx Neurological Disorders No Significant History Cardiovascular History Hx Hypercholesterolemia Yes Hx Hypertension Yes Respiratory History Hx Respiratory Disorders No Significant History Gastrointestinal History Hx Gastrointestinal Disorders No Significant History Genitourinary History Hx Renal Disease Yes: POLYCISYSTIC KIDNEY Musculoskeletal History Hx Musculoskeletal Disorders No Significant History Hematological History Hx Hematological Disorders No Significant History Endocrine History Hx Endocrine Disorders No Significant History HEENT History Hx HEENT Disorders No Significant History Integumentary History Hx Skin Disorders No Significant History Psychosocial History Hx Anxiety Yes Hx Depression Yes Pain History History of Any Previous or Ongoing No Significant History Instance of Pain Anesthesia History Hx Anesthesia Reactions No Significant History Evaluation Information Problem Diagnosis L Knee Pain Onset 02/07/22 Additional Evaluation Detail LEFS = 58% functionally declined Subjective Information Pt reports that as a kid she Query Text:As Reported By Patient/ experienced her knees locking Family up after kneeling for a while. Yesterday, she was getting out of bed with her legs and L knee went out of place. She states that the pain was excruciating and she had to lay on the floor for six hours . She then was walking with a stool, similar to as if it was a walker for her to get to the bathroom. When walking to the bathroom, her knee went back into place and was less painful, but was just sore.
== END 2022-03-09 16:59 | disposition home or self-care (01) ==
LOC: CHSPT 12:53
PROVIDERS: PCP Nurse Practitioner Family; Visit Provider Nurse Practitioner Family
DX: M25.562 Pain in left knee (principal)
CPT/HCPCS: 97110; 97112; 97161; 97530